=== PATIENT | female | born 1995 | race Two or more races ===

== ENCOUNTER 2025-06-12 09:30 | Emergency (ER) | payer OTHER ==
[~2025-06-12] VITALS: Ht 162.6 cm; Wt 90.9 kg
[2025-06-12 09:41] VITALS: BP 130/90; PULSE 76; RESP 18; TEMP 98.3; O2SAT 99
[2025-06-12 10:00] LABS: PLATELET COUNT (AUTO) 368 K/uL (150-450); RED BLOOD CELL COUNT(AUTO) 4.58 MIL/uL (4.00-5.20); RED CELL DISTRIBUTION WIDTH 13.6 % (11.5-14.5); WHITE BLOOD COUNT (AUTO) 7.1 K/uL (4.5-11.0)
[2025-06-12 10:10] LABS: CALCIUM, TOTAL 8.8 mg/dL (8.8-10.5); CREATININE 0.50 mg/dL (0.60-1.30); GLOMERULAR FILTR. RATE CALC > 60 mL/min (>60); GLUCOSE,RANDOM 88 mg/dL (70-110); SODIUM SERUM 139 mmol/L (136-145); UREA NITROGEN, BLOOD 8 mg/dL (7-18)
[2025-06-12] MEDS ORDERED: MUPIROCIN CALCIUM 2% 22 GM OINTMENT ONE (10:59)
[2025-06-12] MEDS ORDERED: RINGERS SOLUTION,LACTATED 1,000 ML IV ONE ×2 (11:44→13:40)
[2025-06-12] MEDS ORDERED: DEXAMETHASONE SOD PHOS 4 MG/ML VIAL ONE (12:00)
[2025-06-12] MEDS ORDERED: LIDOCAINE/PF 2% 5 ML VIAL ONE (12:00)
[2025-06-12] MEDS ORDERED: ROCURONIUM BROMIDE 10 MG/ML 5 ML VIAL ONE (12:00)
[2025-06-12] MEDS ORDERED: SUGAMMADEX SODIUM 200 MG/2 ML VIAL IVP ONE (12:00)
[2025-06-12] MEDS ORDERED: GLYCOPYRROLATE 0.2 MG/ML VIAL ONE (12:00)
[2025-06-12] MEDS ORDERED: KETAMINE HCL 50 MG/ML 10 ML VIAL ONE (12:00)
[2025-06-12] MEDS ORDERED: ONDANSETRON HCL 4 MG/2 ML VIAL ONE (12:00)
[2025-06-12] MEDS ORDERED: FentaNYL CITRATE PF 100 MCG/2 ML VIAL ONE (12:00)
[2025-06-12] MEDS ORDERED: MIDAZOLAM HCL 2 MG/2 ML VIAL ONE (12:00)
[2025-06-12] MEDS: RINGERS SOLUTION,LACTATED 1,000 ML IV ONE (12:22)
[2025-06-12] MEDS: CHLORHEXIDINE GLUCONATE 2% TOWELETTE [2'S/6'S] TP ONE (12:22)
[2025-06-12] MEDS: ETHYL ALCOHOL 62% ANTISEPTIC NASAL SANITIZER 0.6 ML AMPUL NASAL ONE (12:23)
[2025-06-12] MEDS: BUPIVACAINE LIPOSOME/PF 1.3%-13.3MG/ML SUSP 20 ML VIAL INJ ONE (14:30)
[2025-06-12] MEDS: MICROFIBRILLAR COLLAGEN 1 GM PACKAGE TP ONE (14:30)
[2025-06-12] MEDS: VANCOMYCIN HCL 1 GM VIAL ONE (14:30)
[2025-06-12] MEDS: BUPIVACAINE HCL/PF 0.25% 30 ML VIAL ONE (14:30)
[2025-06-12] MEDS ORDERED: ACETAMINOPHEN 1000 MG/ISO-OSM 100 ML IV ONE (14:38)
[2025-06-12] MEDS: ACETAMINOPHEN 1000 MG/ISO-OSM 100 ML IV ONE (15:04)
== END 2025-06-12 16:09 | disposition home or self-care (01) ==
LOC: EMS 09:30
DX: S52.511A Displaced fracture of right radial styloid process, initial encounter for closed fracture (principal); S52.501A Unspecified fracture of the lower end of right radius, initial encounter for closed fracture; F17.210 Nicotine dependence, cigarettes, uncomplicated; N89.8 Other specified noninflammatory disorders of vagina; Z98.51 Tubal ligation status; Z88.5 Allergy status to narcotic agent; W19.XXXA Unspecified fall, initial encounter; Y93.89 Activity, other specified; Y92.89 Other specified places as the place of occurrence of the external cause; Y99.8 Other external cause status
CPT/HCPCS: 99285; 96374; 96361; 96375; 80048; 84702; 85025; 36415; 87081; 73110; 96372; J0666; J3490 ×6; J0690; J1100; J3010; J1171; J2250; J2405; J3373; J7120; J7030; J0131